=== PATIENT | female | born 2000 | race American Indian/Alaskan Native ===

== ENCOUNTER 2019-06-23 15:46 | Emergency (ER) | payer MEDICAID, OTHER ==
[2019-06-23] MEDS ORDERED: NACL 0.9% 1000 ML 1,000 ML IV ONE ×2 (16:10→17:58)
[2019-06-23] MEDS ORDERED: NACL 0.9% 1000 ML 1,000 ML ONE (16:14)
[2019-06-23 16:53] LABS: Basophils # (Auto) 0.1 K/mm3 (0.0-0.1); Basophils % (Auto) 0.5 % (0.0-1.8); Eosinophils # (Auto) 0.3 K/mm3 (0.0-0.4); Eosinophils % (Auto) 1.5 % (0.0-4.3); Hematocrit 28.7 % (30.3-42.9); Hemoglobin 9.7 gm/dl (10.1-14.3); Lymphocytes # (Auto) 2.4 K/mm3 (1.2-5.4); Lymphocytes % (Auto) 13.2 % (13.4-35.0); Mean Corpuscular HGB Conc 34 % (30-34); Mean Corpuscular Volume 90 fl (79-97); Monocytes # (Auto) 0.8 K/mm3 (0.0-0.8); Monocytes % (Auto) 4.2 % (0.0-7.3); Platelet Count 245 K/mm3 (140-440); Red Blood Count 3.18 M/mm3 (3.65-5.03); Red Cell Distribution Width 15.4 % (13.2-15.2)
[2019-06-23] MEDS ORDERED: MORPHINE IV ONE (16:57)
[2019-06-23 17:11] LABS: Alanine Aminotransferase 9 units/L (7-56); Albumin 3.2 g/dL (3.9-5); BUN/Creatinine Ratio 14; Blood Urea Nitrogen 10 mg/dL (7-17); Calcium 8.1 mg/dL (8.4-10.2); Hemolysis Index 8
[2019-06-23 19:15] LABS: HCG Qualitative,Urine Positive (Negative)
[2019-06-23 19:16] LABS: Bilirubin,Urine NEG (Negative); Blood,Urine LG (Negative); Color,Urine Yellow (Yellow); Mucus,Urine FEW /HPF; Urobilinogen,Urine < 2.0 mg/dL (<2.0)
[2019-06-23] MEDS ORDERED: MACROBID PO ONE (19:18)
--- NOTE | 2019-06-23 19:43 | Emergency Department Report ---
HPI - General Chief Complaint: Vaginal Bleeding Time Seen by Provider: 06/23/19 16:34 - HPI HPI: 18-year-old Juli female presents to the emergency department by EMS from work with complaint of a progressively worsening history of lower abdominal and pelvic pain, vaginal bleeding. The patient then had a syncopal episode with EMS. She says that her symptoms started last night and she is having moderate vaginal bleeding. The triage information listed her as a possible miscarriage. 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 She says that her last menstrual cycle was May 18. If the patient is , she will be with 3 live children. She otherwise has a past medical history of asthma. Her [employer] is [facility]. ED Past Medical Hx - Past Medical History Hx Hypertension: No Hx Congestive Heart Failure: No Hx Diabetes: No Hx Deep Vein Thrombosis: No Hx Renal Disease: No Hx Sickle Cell Disease: No Hx Seizures: No Hx Asthma: Yes (last attack 1 month ago) Hx COPD: No Hx HIV: No Additional medical history: sickle cell trait - Social History Smoking Status: Never Smoker Substance Use Type: None - Medications Home Medications: Home Medications Medication Instructions Recorded Confirmed Last Taken Type Acetaminophen/Diphenhydramine 1 each PO Q8H 06/23/19 06/23/19 Unknown History [Tylenol Pm Ex-Strength Caplet] Nitrofurantoin Mower/M-Cryst 100 mg PO Q12HR #14 capsule 06/23/19 Unknown Rx [Macrobid CAP] Vit-Fe Fumar-FA [ 1 tab PO QDAY #30 tablet 06/23/19 Unknown Rx Vitamin] ED Review of Systems ROS: Stated complaint: POSS MISCARRIAGE Other details as noted in HPI Comment: All other systems reviewed and negative Constitutional: denies: chills, fever Eyes: denies: eye pain, vision change ENT: denies: ear pain, throat pain Respiratory: denies: cough, shortness of breath Cardiovascular: denies: chest pain, palpitations Gastrointestinal: abdominal pain. denies: nausea, vomiting Genitourinary: abnormal menses. denies: dysuria, discharge Musculoskeletal: denies: back pain, arthralgia Skin: denies: rash, lesions Neurological: denies: headache, weakness Physical Exam - Physical Exam Vital Signs: Vital Signs 06/23/19 06/23/19 06/23/19 16:00 16:06 17:56 Temperature 97.7 F Pulse Rate 85 85 Respiratory 16 18 18 Rate Blood Pressure 95/52 Blood Pressure 102/58 [Left] O2 Sat by Pulse 100 98 97 Oximetry Physical Exam: GENERAL: The patient is well-developed well-nourished. HENT: Normocephalic. Atraumatic. Patient has moist mucous membranes. EYES: Extraocular motions are intact. NECK: Supple. Trachea is midline. CHEST/LUNGS: Clear to auscultation. There is no respiratory distress noted. HEART/CARDIOVASCULAR: Regular. There is no tachycardia. There is no murmur. ABDOMEN: Abdomen is soft. Lower abdominal tenderness to palpation. No guarding. Patient has normal bowel sounds. There is no abdominal distention. SKIN: Skin is warm and dry. NEURO: The patient is awake, alert, and oriented. The patient is cooperative. The patient has no focal neurologic deficits. Normal speech. Cranial nerves II through XII grossly intact. MUSCULOSKELETAL: There is no tenderness or deformity. There is no evidence of acute injury. ED Course Vital Signs 06/23/19 06/23/19 06/23/19 16:00 16:06 17:56 Temperature 97.7 F Pulse Rate 85 85 Respiratory 16 18 18 Rate Blood Pressure 95/52 Blood Pressure 102/58 [Left] O2 Sat by Pulse 100 98 97 Oximetry ED Medical Decision Making - Lab Data Result diagrams: 06/23/19 16:18 06/23/19 16:36 - EKG Data -: EKG Interpreted by Nm EKG shows normal: sinus rhythm, axis, intervals, QRS complexes (Q waves to the septal leads), ST-T waves Rate: normal - EKG Data When compared to previous EKG there are: previous EKG unavailable Interpretation: other (sinus rhythm, rate of 89 bpm, normal axis, Q waves to the septal leads) - Radiology Data Radiology results: report reviewed ULTRASOUND OBSTETRIC INDICATION: pelvic pain and vaginal bleeding. TECHNIQUE: Transvaginal. COMPARISON: None available. FINDINGS: Uterus: Normal in size without identification of an intrauterine gestational sac. No mass or other significant abnormality is identified. The endometrial stripe measures 10 mm. Ovaries: Normal in size and appearance with expected color flow. Free fluid: None seen. Additional findings: None. IMPRESSION: No sonographic evidence of an intrauterine or ectopic or other acute abnormality of the pelvis. - Medical Decision Making This patient presented with a complaint of some pelvic pain, vaginal bleeding and then a syncopal episode while waiting for EMS. Since being in the emergency department she is awake and alert, oriented, but does appear uncomfortable. Labs show a leukocytosis, some anemia and a hormone of about 3000. The patient has known anemia. It is not at a level that requires transfusion. A transvaginal ultrasound was done that does not show any signs, at this point, of an intrauterine or signs of anything concerning for ectopic. Patient was given a dose of pain medication upon arrival. She was reevaluated multiple times and says she is feeling greatly improved. The vaginal bleeding and pain has greatly slowed up. She does not have any focal, motor or sensory deficits and her cranial nerves are intact. There is been no further signs of syncope or any neurological deficits. Patient will be discharged home to follow-up with her [employer]. She was started on vitamins. She understands that she will need a repeat ultrasound and hormone level and that if the hormone level is increasing, this may be a very early . If the hormone level is decreasing, this may have been a miscarriage. - Differential Diagnosis , threatened miscarriage, spontaneous miscarriage, fibroids Critical Care Time: No Critical care attestation.: If time is entered above; I have spent that time in minutes in the direct care of this critically ill patient, excluding procedure time. ED Disposition Clinical Impression: Threatened miscarriage UTI (urinary tract infection) Qualifiers: Urinary tract infection type: acute cystitis Hematuria presence: with hematuria Qualified Code(s): N30.01 - Acute cystitis with hematuria Qualifiers: Weeks of gestation: less than 8 weeks Qualified Code(s): Z3A.01 - Less than 8 weeks gestation of Syncope Qualifiers: Syncope type: unspecified Qualified Code(s): R55 - Syncope and collapse Disposition: DC-01 TO HOME OR SELFCARE Is pt being admited?: No Condition: Stable Instructions: Threatened Miscarriage (ED), (ED), Urinary Tract Infection in Women (ED), Syncope (ED) Additional Instructions: Please follow-up with your [employer] in the next few days. You will need a repeat hormone level and possible ultrasound. If the hormone level is increasing, this may be a viable . If the hormone level is decreasing at that point, this may have been a miscarriage. Return to the emergency Department with any worsening of your symptoms including any increased vaginal bleeding, any further episodes of passing out, or with any acute distress. Prescriptions: Nitrofurantoin Mower/M-Cryst [Macrobid CAP] 100 mg PO Q12HR #14 capsule Vit-Fe Fumar-FA [ Vitamin] 1 tab PO QDAY #30 tablet Referrals: [facility] [Provider Group] - 2-3 Days Time of Disposition: 20:09
--- NOTE | 2019-06-23 19:50 | Ultrasound Report ---
ULTRASOUND OBSTETRIC INDICATION: pelvic pain and vaginal bleeding. TECHNIQUE: Transvaginal. COMPARISON: None available. FINDINGS: Uterus: Normal in size without identification of an intrauterine gestational sac. No mass or other si gnificant abnormality is identified. The endometrial stripe measures 10 mm. Ovaries: Normal in size and appearance with expected color flow. Free fluid: None seen. Additional findings: None. IMPRESSION: No sonographic evidence of an intrauterine or ectopic or other acute abnormality of the pel vis. Signer Name: Vernon Olivares MD Signed: 06/23/2019 7:46 PM Workstation Name: [id number]
[2019-06-23 19:54] VITALS: BP 98/65
== END 2019-06-23 20:59 | disposition home or self-care (01) ==
LOC: ED 15:46
DX: O20.0 Threatened abortion (principal); O23.41 Unspecified infection of urinary tract in pregnancy, first trimester; O99.511 Diseases of the respiratory system complicating pregnancy, first trimester; O99.011 Anemia complicating pregnancy, first trimester; R55 Syncope and collapse; D57.3 Sickle-cell trait; Z3A.01 Less than 8 weeks gestation of pregnancy; Z91.011 Allergy to milk products
CPT/HCPCS: 36415; 76801; 76817; 80053; 81001; 81025; 84702; 84703; 85025; 86850; 86900; 86901; 93005; 93010; 96361; 96374; 99284; J2270; J7030